=== PATIENT | male | born 1980 | race Caucasian/White ===

== ENCOUNTER 2016-05-15 10:20 | Emergency (ER) | payer OTHER ==
[~2016-05-15] VITALS: Ht 185.4 cm; Wt 99.0 kg
[~2016-05-15 10:20] MED LIST: ACETAMINOPHEN500 MG PO; CELEXA40 MG PO; RISPERIDONE0.5 MG PO; ULTRAM50 MG PO; ZOFRAN ODT4 MG PO
[2016-05-15 11:29] LABS: ADD MIUA? YES; BILIRUBIN NEGATIVE; BLOOD MODERATE; COLOR STRAW ((YELLOW)); GLUCOSE (STRIP) 150; KETONES NEGATIVE; LEUKOCYTES NEGATIVE; NITRITE NEGATIVE; PROTEIN (STRIP) NEGATIVE; SPECIFIC GRAVITY 1.011 (1.000-1.030); UROBILINOGEN 0.2 MG/DL (0.2-1.0)
[2016-05-15 11:49] LABS: BACTERIA NONE SEEN /HPF; EPITHELIAL CELLS NONE SEEN /HPF; GRANULAR CASTS 0-5 /LPF; MUCUS TRACE /LPF; WHITE BLOOD CELLS 0-5 /HPF (0-5)
[2016-05-15] MEDS ORDERED: NORCO 5/3251 TABLET PO (12:12)
[2016-05-15 12:27] VITALS: BP 145/90
== END 2016-05-15 12:28 | disposition home or self-care (01) ==
LOC: EXP 10:20 → EME 10:20 → EXP 12:28
PROVIDERS: Physician Assistant
DX: N23 Unspecified renal colic (principal)
CPT/HCPCS: 74176; 81003; 99281; 99284